=== PATIENT | female | born 1965 | race Asian ===

== ENCOUNTER 2024-09-16 17:51 | Emergency (ER) | payer OTHER, SELFPAY ==
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
[2024-09-16 17:59] VITALS: BP 153/81; PULSE 67; RESP 18; TEMP 36.7; O2SAT 98
[2024-09-16 18:01] VITALS: BMI 28.2
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
[2024-09-16 18:08] VITALS: BP 150/92; PULSE 66; O2SAT 99
[2024-09-16 18:29] VITALS: BP 139/70; PULSE 71; RESP 18; TEMP 36.7; O2SAT 98; BMI 29.2
[2024-09-16] MEDS: Acetaminophen 325 MG TABLET 975 MG PO (19:23)
[2024-09-16 23:02] VITALS: BP 123/68; PULSE 60; RESP 18; TEMP 37.2; O2SAT 95
[2024-09-16 23:52] VITALS: BP 123/68; PULSE 60; RESP 18; TEMP 37.2; O2SAT 95
== END 2024-09-16 23:55 | disposition home or self-care (01) ==
PROVIDERS: Emergency Provider Emergency Medicine Emergency Medical Services
DX: S39.012A Strain of muscle, fascia and tendon of lower back, initial encounter (principal); V43.52XA Car driver injured in collision with other type car in traffic accident, initial encounter; Y93.9 Activity, unspecified; Y92.410 Unspecified street and highway as the place of occurrence of the external cause; Y99.9 Unspecified external cause status; R51.9 Headache, unspecified; M54.2 Cervicalgia; M25.511 Pain in right shoulder
CPT/HCPCS: 70450; 72100; 72125; 73030; 99284